=== PATIENT | male | born 1930 | race African-American/Black ===

== ENCOUNTER 2018-07-01 12:22 | Emergency (ER) | payer MEDICAID, OTHER ==
[~2018-07-01] VITALS: Ht 172.7 cm; Wt 75.0 kg
[2018-07-01 16:08] LABS: BASOPHILS % 0.8 % (0.0-2.0); EOSINOPHILS % 2.8 % (0.0-5.0); HEMATOCRIT. 29.3 % (42.0-52.0); HEMOGLOBIN. 9.7 g/dL (14.0-18.0); LYMPHOCYTES % 18.7 % (20.0-50.0); MEAN CORPUSCULAR HEMOGLOBIN 34.4 pg (28.0-32.0); MEAN CORPUSCULAR VOLUME 103.9 fL (80.0-94.0); MEAN PLATELET VOLUME 7.3 fl (7.4-10.4); MONOCYTES % 12.2 % (2.0-8.0); NEUTROPHILS % 65.5 % (40.0-76.0); PLATELET 163 x1000/uL (130-400); RED BLOOD CELL COUNT 2.82 mill/uL (4.7-6.1); RED CELL DISTRIBUTION WIDTH 14.6 % (11.6-14.6)
[2018-07-01 16:13] LABS: CHLORIDE 110 mEq/L (98-107)
[2018-07-01 16:14] LABS: INR 1.2
[2018-07-01 18:36] LABS: CLARITY URINE CLOUDY (CLEAR); COLOR URINE YELLOW (YELLOW); KETONES URINE 1+ (NEGATIVE); LEUKOCYTE ESTERASE URINE 3+ (NEGATIVE); NITRITE URINE POSITIVE (NEGATIVE); OCCULT BLOOD URINE TRACE (NEGATIVE); PH URINE 7.5 (4.5-8.0); PROTEIN URINE 1+ (NEGATIVE); SPECIFIC GRAVITY URINE 1.022 (1.005-1.030); UROBILINOGEN URINE 0.2 E.U./dL (0.2-1.0)
[2018-07-01] MEDS ORDERED: SODIUM CHLORIDE 0.9% 500 ML IV ONE (19:45)
[2018-07-01] MEDS ORDERED: CEFTRIAXONE 1 G PREMIX 50 ML IV ONE (19:45)
[2018-07-01 21:48] VITALS: BP 150/65
== END 2018-07-01 21:59 | disposition short-term general hospital (02) ==
LOC: ER 12:22 → CANBEDREQ 22:24
DX: R26.9 Unspecified abnormalities of gait and mobility (principal); M17.12 Unilateral primary osteoarthritis, left knee; N39.0 Urinary tract infection, site not specified; E11.9 Type 2 diabetes mellitus without complications; Z91.81 History of falling
CPT/HCPCS: 36415; 71045; 73562; 80053; 81003; 82962; 85025; 85610; 87086; 93005; 96365; 99285; J0696; J7040